=== PATIENT | male | born 1960 | race Caucasian/White ===

== ENCOUNTER → 2017-01-06 | Outpatient (CLI) | payer OTHER | END | disposition disaster alternative care site (69) | LOC: GRAD 15:00 | DX: Z47.89 Encounter for other orthopedic aftercare (principal); Z98.890 Other specified postprocedural states ==

== ENCOUNTER 2017-04-17 18:07 | Emergency (ER) | payer SELFPAY ==
--- NOTE | ~2017-04-17 | ER ---
PATIENT'S NAME: TRISTAN COTTER [facility] AGE: 57 Y [address] ROOM: [place], [place] [address] LOCATION: ED ADMIT DATE: 04/17/2017 ER/Outpatient Report DISCHARGE DATE: 04/17/2017 FAMILY PHYSICIAN: Jaydon Leigh MD ATTENDING PHYSICIAN: Kenneth Hsu Time of Arrival: 1809 hours. Time of Evaluation: 1822 hours. CHIEF COMPLAINT: Abdominal pain. HISTORY OF PRESENT ILLNESS: The patient states he has not felt well for the past 24 hours. Has not really done much today with sleep. He states he has had generalized abdominal pain, feels as though his tummy is bloated. He states it is similar to symptoms that he has had in the past when he has been constipated. However, he did have 2 stools today. Reports he is urinating without any frequency or pain. Has not been nauseated. No vomiting. No injury to his abdomen. ALLERGIES: NO KNOWN ALLERGIES. CURRENT MEDICATIONS: On his chart and reviewed by me. PAST MEDICAL HISTORY: Hypertension and seizures, drug-induced. PAST SURGICAL HISTORY: He fell from a roof in December of 2014 and had surgery to his thoracic region and rib fractures at that time. SOCIAL HISTORY: He smokes a pack per day and has for the last 42 years. Does smoke marijuana and drinks alcohol on a regular basis. REVIEW OF SYSTEMS: Negative other than those mentioned in the HPI. PHYSICAL EXAMINATION: VITAL SIGNS: He weighed 82.1 kg, blood pressure initially is 142/101, pulse is 77, respirations 16, temperature of 97.3 tympanic, O2 saturation 95% on room air. GENERAL: He is awake, alert, and oriented x4. SKIN: [employer], warm, and dry. PATIENT'S NAME: TRISTAN COTTER [facility] AGE: 57 Y [address] ROOM: [place], [place] [address] LOCATION: ED ADMIT DATE: 04/17/2017 ER/Outpatient Report DISCHARGE DATE: 04/17/2017 FAMILY PHYSICIAN: Jaydon Leigh MD ATTENDING PHYSICIAN: Kenneth Hsu RESPIRATIONS: Even and nonlabored. Lung sounds are clear throughout. HEART: Regular rate and rhythm. ABDOMEN: Soft, nondistended. Bowel sounds are present. He is tender in all 4 quadrants with palpation. Negative Silverman sign. Has the most tenderness in the right upper quadrant. LABORATORY DATA AND X-RAYS: Lab work was completed. White count was 9.5, hemoglobin of 16.5, hematocrit 48.6. Chem panel: Sodium is 137, potassium is 4.2, and chloride 105. BUN 13 with a creatinine 0.9. Amylase is 48 with a lipase of 138. Liver enzymes are within normal limits. Did do a Depakote level and it is low. The patient states he is not taking it daily as recommended. Three-way abdominal x-ray was completed and reviewed with Dr. Hsu, it is nondescript radiologist reports. No obstructive bowel pattern. No evidence of free air. Did start an IV. CT scan of the abdomen was completed. Radiologist reports that there is some attenuation of the pancreatic head, could be the start of pancreatitis. EMERGENCY DEPARTMENT COURSE: Fluids of normal saline were started at a wide-open rate. The patient was given Toradol 30 mg IV. He rested comfortably on the cart. He states his pain was improving. Vital signs did improve. His blood pressure came down to 136/90. He remained afebrile. IMPRESSION: Abdominal pain. PLAN: Home, rest, fluids. Decrease alcohol intake. If symptoms persist or worsen, he should follow up with his primary provider Dr. Leigh in the next 2 to 3 days or return to the ER as needed. He verbalized understanding. GEN MUÑOZ APRN FOR MD [facility]EVEN[facility] KEARNS/ben /[id number] d: 04/18/17 0324 t: 04/22/17 1239, OUTPATIENT REPORT
[2017-04-17 18:54] LABS: BASOPHIL # 0.1 K/uL (0.0-0.2); BASOPHIL % 0.9 %; EOSINOPHIL # 0.3 K/uL (0.0-0.5); EOSINOPHIL % 3.1 %; HEMATOCRIT 48.6 % (37.0-53.0); HEMOGLOBIN 16.5 g/dL (12.0-17.0); IMMATURE GRANULOCYTE % 0.3 %; LYMPHOCYTE # 1.4 K/uL (0.8-4.0); LYMPHOCYTE % 14.7 %; MCH 31.7 pg (27.0-34.0); MCV 93.5 fl (83.0-98.0); MONOCYTE # 0.4 K/uL (0.0-1.0); MONOCYTE % 4.5 %; MPV 8.7 fl (9.4-12.4); NEUTROPHIL # (ANC) 7.3 K/uL (1.4-9.0); NEUTROPHIL % 76.5 %; NRBC % 0 /100WBC (0-0.00); PLATELET COUNT 206 K/uL (150-450); RDW-CV 11.7 % (11.9-14.6); WBC 9.5 K/uL (4.0-11.0)
[2017-04-17 19:09] LABS: ALBUMIN 3.1 gm/dL (3.5-5.0); ALK PHOS 112 IU/L (33-138); ALT 24 IU/L (12-78); ANION GAP 10.2 (10.0-19.0); AST 17 IU/L (10-40); BLOOD UREA NITROGEN 13 mg/dL (6-24); CALCIUM 8.6 mg/dL (8.5-10.5); CHLORIDE 105 mMol/L (96-110); CO2 26 mMol/L (22-32); CREATININE 0.9 mg/dL (0.6-1.3); ESTIMATED GFR (MDRD EQUATION) > 60; POTASSIUM 4.2 mMol/L (3.7-5.1); SODIUM 137 mMol/L (135-145); TOTAL BILIRUBIN 0.6 mg/dL (0.0-1.5); TOTAL PROTEIN 6.6 g/dL (6.0-8.4)
== END 2017-04-17 21:29 | disposition disaster alternative care site (69) ==
LOC: GMED 18:07
PROVIDERS: Nurse Practitioner Family
DX: R10.84 Generalized abdominal pain (principal); I10 Essential (primary) hypertension; F17.210 Nicotine dependence, cigarettes, uncomplicated; Z79.82 Long term (current) use of aspirin; Z79.899 Other long term (current) drug therapy
CPT/HCPCS: J1885; J7030; Q9967